=== PATIENT | female | born 1990 | race Caucasian/White ===

== ENCOUNTER → 2017-11-17 | Emergency (ER) | payer MEDICAID ==
[~2017-11-17] VITALS: Ht 157.5 cm; Wt 51.5 kg
[~2017-11-17] MED LIST: DIAZ5TAB4 PO; IBUP-1985 PO; METH4TAB3 PO; TETanus/Pertussis (Acell)/Diphther VAC/PF (Tdap-Adult) 0.5ml syringe IM ONE
[2017-11-17 22:11] VITALS: BP 141/77
== END | disposition home or self-care (01) ==
LOC: ER 19:42
DX: S80.811A Abrasion, right lower leg, initial encounter (principal); J06.9 Acute upper respiratory infection, unspecified; F12.10 Cannabis abuse, uncomplicated; W13.2XXA Fall from, out of or through roof, initial encounter; Y93.E5 Activity, floor mopping and cleaning; Y92.89 Other specified places as the place of occurrence of the external cause; Y99.8 Other external cause status; Z79.899 Other long term (current) drug therapy
CPT/HCPCS: 73610; 90471; 90715; 99284

== ENCOUNTER 2019-10-23 11:35 | Emergency (ER) | payer MEDICAID ==
[~2019-10-23] VITALS: Ht 157.5 cm; Wt 57.9 kg
[~2019-10-23 11:35] MED LIST changes: -TETanus/Pertussis (Acell)/Diphther VAC/PF (Tdap-Adult) 0.5ml syringe IM ONE
[2019-10-23 11:38] VITALS: BP 138/87
--- NOTE | 2019-10-23 13:12 | NUR ---
PT AND BOYFRIEND WALKED UP TO NURSES STATING SAYING PT HAS TO LEAVE TO GO PROGRAM/MUSIC DIRECTOR DAUGHTER BOYFRIEND IS NOT ON APPROVED LIST TO PROGRAM/MUSIC DIRECTOR DAUGHTER, PROVIDER HAS NOT SIGNED UP FOR PT AT THIS TIME, PT BOYFRIEND PUSHED PT OUT VIA WHEELCHAIR TO LOBBY,
== END 2019-10-23 13:16 | disposition left against medical advice (07) ==
LOC: ER 11:35
DX: M54.9 Dorsalgia, unspecified (principal); Z53.21 Procedure and treatment not carried out due to patient leaving prior to being seen by health care provider

== ENCOUNTER 2024-07-14 20:17 | Emergency (ER) | payer MEDICAID ==
[~2024-07-14] VITALS: Ht 160 cm; Wt 52.3 kg
[2024-07-14 20:37] VITALS: TEMP 98.4
[2024-07-14] MEDS: LIDOcaine/epinephrine/tetracaine TOPICAL sol 3 ML syringe TOP ONE (21:23)
[2024-07-14] MEDS: ketorolac trometh 15mg/ml vial 15 MG/ML ML IM ONE (21:24)
[2024-07-14] MEDS ORDERED: AMOX500C2 PO (22:30)
[2024-07-14] MEDS: bacitracin 15gm ointment TP ONE (22:38)
[2024-07-14] MEDS: amoxicillin 250mg capsule PO ONE (22:38)
[2024-07-14] MEDS ORDERED: BACI28.42 TOP (22:42)
[2024-07-14] MEDS ORDERED: OXYC-145 PO (22:42)
[2024-07-14 23:00] VITALS: PULSE 86; RESP 15; O2SAT 98
[2024-07-14 23:02] VITALS: BP 113/65
== END 2024-07-14 23:04 | disposition home or self-care (01) ==
LOC: ER 20:18
DX: T23.231A Burn of second degree of multiple right fingers (nail), not including thumb, initial encounter (principal); F12.90 Cannabis use, unspecified, uncomplicated; Z91.09 Other allergy status, other than to drugs and biological substances; Z79.2 Long term (current) use of antibiotics; Z79.899 Other long term (current) drug therapy; X08.8XXA Exposure to other specified smoke, fire and flames, initial encounter; Y93.89 Activity, other specified; Y92.89 Other specified places as the place of occurrence of the external cause; Y99.8 Other external cause status
CPT/HCPCS: 16020; 96372; 99283; J1885; J3490